=== PATIENT | male | born 1975 | race Caucasian/White ===

== ENCOUNTER 2017-01-19 16:06 | Emergency (ER) | payer SELFPAY ==
[2017-01-19 16:18] VITALS: BP 131/90
--- NOTE | 2017-01-19 16:19 | ER Document Report ---
ED Medical Screen (RME) - General Stated Complaint: RIGHT KNEE PAIN Time seen by provider: 16:15 Mode of Arrival: Ambulatory Notes: Patient complains of right knee pain that started last night. Patient states that the pain is constant, but denies any injury. No previous history of problems with the knees. States he feels the pain under the kneecap. He states he took 600 mg of ibuprofen this morning with no relief of symptoms. Denies swelling. I have greeted and performed a rapid initial assessment of this patient. A comprehensive ED assessment and evaluation of the patient, analysis of test results and completion of the medical decision making process will be conducted by additional ED providers. - Related Data Allergies/Adverse Reactions: No Known Allergies Allergy (Verified 01/19/17 16:15) Physical Exam - Extremities Notes: Patient mildly tender to right lateral knee. Patient has full range of motion.
--- NOTE | 2017-01-19 17:05 | ER Document Report ---
ED Extremity Problem, Lower - General Chief Complaint: Knee Pain Stated Complaint: RIGHT KNEE PAIN Mode of Arrival: Ambulatory Notes: Patient is complaining of pain of his right jair-lateral knee that was present when he awakened this morning. There is no pain in the popliteal fossa , or in the right lower leg anywhere. Negative Homans. Has never had this happen before. Patient says that it is so painful that he is unable to keep his foot on the pedals to drive a car. He and his travel from here to [place] yesterday from about 2 PM until 6:30 PM and they went on a dinner [place] and then spent the night in [place]. They awakened and left [place] about 10:30 this morning to return here and that's when the patient noticed his pain. He specifically does not recall any injury or unusual activity or positioning of the knee that would result in this pain that he is experiencing. Patient took 600 mg of Motrin this morning but that did not cause any relief of symptoms. He is able to walk on the knee, but it is painful to do so and he has a very slight limp. Does not have any history of any arthritic conditions. Has not had a fever. Never had a problem with blood clots. TRAVEL OUTSIDE OF THE [place] IN LAST 30 DAYS: No - Related Data Allergies/Adverse Reactions: No Known Allergies Allergy (Verified 01/19/17 16:15) Past Medical History - Social History Smoking Status: Never Smoker Chew tobacco use (# tins/day): No Frequency of alcohol use: Occasional Drug Abuse: None Family History: Reviewed & Not Pertinent Patient has suicidal ideation: No Patient has homicidal ideation: No Musculoskeltal Medical History: Denies Hx Arthritis, Denies Hx Gout, Denies Hx Myositis Psychiatric Medical History: Reports: Hx Anxiety, Hx Depression - On a medication but he can't recall the name Past Surgical History: Reports: Hx Cholecystectomy Review of Systems - Review of Systems Notes: REVIEW OF SYSTEMS: CONSTITUTIONAL : Denies fever. No unusual activity or positioning or anything else having to do with his right knee. EENT: Denies eye, ear, nose or mouth or throat pain or other symptoms. CARDIOVASCULAR: Denies chest pain. RESPIRATORY: Denies cough, chest congestion, or shortness of breath. GASTROINTESTINAL: Denies abdominal pain or nausea, vomiting, or diarrhea. GENITOURINARY: Denies difficulty or painful urinating, urinary frequency, blood in urine. MUSCULOSKELETAL: Denies back or neck pain. See history of present illness. SKIN: Denies rash or skin lesions. NEUROLOGICAL: Denies LOC or altered mental status. Denies headache. Denies sensory loss or motor deficits. ALL OTHER SYSTEMS REVIEWED AND NEGATIVE. Physical Exam - Vital signs Vitals: Temp Pulse Resp BP Pulse Ox 97.9 F 78 16 131/90 H 97 01/19/17 16:16 01/19/17 16:16 01/19/17 16:16 01/19/17 16:16 01/19/17 16:16 Interpretation: Normal. No: Febrile - Notes Notes: PHYSICAL EXAMINATION: GENERAL: Well-appearing, in no acute distress. HEAD: Atraumatic, normocephalic. BACK: No tenderness throughout entire back. EXTREMITIES: Normal range of motion without pain. Right knee does not appear to be swollen and there is no evidence of effusion. All 4 of the major ligaments are tight and secure. There is no erythema, increased heat, lymphangitis, etc. Patient has some mild tenderness to my palpation of the outer anterior aspect of the right knee in the interspace between the lateral right patella and the tissues posterior to it. PSYCH: Normal mood, normal affect. SKIN: Warm, dry, no rashes. Course - Re-evaluation Re-evalutation: 01/19/17 17:25 I'm not sure what's causing the patient's pain. It does not appear to be a blood clot. It does not appear to be an infectious process. It seems to be an arthritic condition that may have been activated by mechanical measures such as unusual positioning of his knee and the travels to [place] yesterday or in his activities last night, although the patient cannot recall any unusual positioning or activities. Advised the patient to take Motrin 400-600 mg a couple times a day for the next few days and apply ice packs to the right knee. If his symptoms subside, I don' t the kidneys further follow-up. On the other hand, if he is not better in 2 days, I recommend he follow-up with his private doctor for further evaluation. Patient declined prescription for Percocet or Vicodin for stronger pain medication. - Vital Signs Vital signs: Temp Pulse Resp BP Pulse Ox 97.9 F 78 16 131/90 H 97 01/19/17 16:16 01/19/17 16:16 01/19/17 16:16 01/19/17 16:16 01/19/17 16:16 - Diagnostic Test Radiology results interpreted by me: 01/19/17 17:25 X-rays of the right knee are normal. Discharge - Discharge Clinical Impression: Arthritis, Bursitis, Tendinitis Right knee pain Qualifiers: Chronicity: acute Qualified Code(s): M25.561 - Pain in right knee Condition: Stable Disposition: HOME, SELF-CARE Additional Instructions: Arthritis Your symptoms are due to arthritis. Arthritis is an inflammation of the joints. There are many types -- osteoarthritis (due to "wear and tear"), auto- immmune arthritis (such as rheumatoid, lupus, Bg's, and others), and crystal -induced arthritis (such as gout and pseudogout). The physician's examination, combined with laboratory tests, will determine the cause of your arthritis. All types of arthritis are treated with antiinflammatory medications. Other medication may be required for special types of arthritis, or if your problem does not respond to the antiinflammatory medicine. Local warmth may be helpful. Move the involved joints through the full range of motion daily. Mild exercise is usually still possible for most persons with arthritis (ask your physician). Swimming provides good exercise without damaging the joints. Contact the physician if you are worsening in any way. Tendonitis The pain you are having is due to tendonitis -- an inflammation around a muscle tendon. It's usually caused by overuse or repeated minor injuries ( strains) of the tendon. Tendonitis can take two to four weeks to heal. In fact, you may actually worsen for a few days despite treatment. Tendonitis is usually treated with rest, local heat, and antiinflammatory medication. Sometimes cold packs are recommended if the tendonitis has just started. If the pain is severe or prolonged, cortisone injections may be required. Call the doctor if pain or swelling become severe, if new discoloration or redness appears, or if numbness is noted. Bursitis You have been diagnosed as having bursitis. Bursitis is an inflammation of a fluid pouch (bursa) found near joints. This is usually due to repeated minor irritation, or pressure directly on the bursa. On occasion, the bursitis can be due to infection (your doctor has checked for this). Sometimes the doctor decides to remove the fluid from the bursa with a needle. This may be to examine the fluid for infection or to ease the pressure caused by the fluid. The usual treatment is rest, local warmth, (or cold if the bursitis is caused by an acute injury), and antiinflammatory medication. Occasionally, an injection of cortisone is necessary. You should call the doctor for re-examination if the pain increases significantly, or if the area becomes severely swollen and red, or fever develops. Your x-rays of your knee are all normal. Your symptoms seems to be secondary to an inflammatory process such as arthritis, tendinitis, bursitis, etc. It sounds most likely as if it may be a mechanical inflammatory process in some way related to your travels or activities over the past 24 hours. Ibuprofen Ibuprofen is an excellent, safe drug for pain control. In addition, it has potent antiinflammatory effects which are beneficial, especially in the treatment of injuries, arthritis, or tendonitis. It's best to take ibuprofen with food. Persons with ulcer disease or allergy to aspirin should notify their physician of this before taking ibuprofen. Take the medication exactly as prescribed. Don't take additional doses unless instructed to do so by your doctor. If you develop wheezing, shortness of breath, hives, faintness, stomach pain, vomiting, or dark black stools, return for re-evaluation at once. Ice Packs Apply ice packs frequently against the painful area. Many different schedules are recommended, such as "20 minutes on, 20 minutes off" or "one hour ice, two hours rest." If you need to work, you may need to go longer between ice treatments. You should plan to have the area ice packed AT LEAST one fourth of the time. The ice should be applied over the wrap, tape, or splint, or over a layer of cloth -- not directly against the skin. Some ice bags have a built-in cloth and can be put directly on the skin. Take it easy tomorrow, rest the area. Apply cold compresses or ice packs off and on over the next 24-48 hours. If you are still having the pain and it doesn 't seem to be getting better Friday, I would see your doctor about another evaluation. FOLLOW-UP CARE: If you have been referred to a physician for follow-up care, call the physician s office for an appointment as you were instructed or within the next two days. If you experience worsening or a significant change in your symptoms, notify the physician immediately or return to the Emergency Department at any time for re-evaluation.
== END 2017-01-19 17:15 | disposition home or self-care (01) ==
LOC: ER 16:06
DX: M25.561 Pain in right knee (principal); Z79.899 Other long term (current) drug therapy
CPT/HCPCS: 99283

== ENCOUNTER 2018-04-04 20:29 | Emergency (ER) | payer BC ==
[2018-04-04] MEDS ORDERED: ALBUTEROL SULFATE HFA (90 MCG/PUFF) 8 GM MDI (1 MDI/ER DISP) IH ONE (21:44)
--- NOTE | 2018-04-04 22:15 | RADIOLOGY REPORT (SQ) ---
EXAM DESCRIPTION: CHEST 2 VIEWS COMPLETED DATE/TIME: 04/04/2018 10:00 pm REASON FOR STUDY: cough, wheezing COMPARISON: None. EXAM PARAMETERS: NUMBER OF VIEWS: two views TECHNIQUE: Digital Frontal and Lateral radiographic views of the chest acquired. RADIATION DOSE: NA LIMITATIONS: none FINDINGS: LUNGS AND PLEURA: No opacities, masses or pneumothorax. No pleural effusion. MEDIASTINUM AND HILAR STRUCTURES: No masses or contour abnormalities. HEART AND VASCULAR STRUCTURES: Heart normal size. No evidence for failure. BONES: No acute findings. HARDWARE: None in the chest. OTHER: No other significant finding. IMPRESSION: NO ACUTE RADIOGRAPHIC FINDING IN THE CHEST. TECHNICAL DOCUMENTATION: JOB ID: [id number] [employer]- All Rights Reserved Reading location - IP/workstation name: [email or web address]
[2018-04-04] MEDS ORDERED: AZITHROMYCIN 250 MG TABLET PO ONE (23:28)
[2018-04-04] MEDS ORDERED: GUAIFENESIN 600 MG TABLET.SA PO ONE (23:28)
--- NOTE | 2018-04-04 23:33 | ER Document Report ---
ED General - General Chief Complaint: Cough Stated Complaint: COUGH Time Seen by Provider: 04/04/18 21:37 Mode of Arrival: Ambulatory Information source: Patient TRAVEL OUTSIDE OF THE [place] IN LAST 30 DAYS: No - HPI Notes: Patient is a 42-year-old male history of reactive airways disease who is been on inhalers for the last year presents with report of cough congestion last 2-3 weeks and is out of his inhaler. The patient is a non-smoker with no history of premature or eczema or childhood asthma. The patient denies any chest pain, but does report the cough keeps him up at night and reports the cough is productive of some slightly colored phlegm. Patient denies any chest pain. The patient reports no vomiting or diarrhea. No constipation. - Related Data Allergies/Adverse Reactions: No Known Allergies Allergy (Verified 04/04/18 20:30) Past Medical History - General Information source: Patient - Social History Smoking Status: Never Smoker Chew tobacco use (# tins/day): No Frequency of alcohol use: None Drug Abuse: None Lives with: Family Family History: COPD Patient has suicidal ideation: No Patient has homicidal ideation: No Renal/ Medical History: Denies: Hx Peritoneal Dialysis Musculoskeltal Medical History: Denies Hx Arthritis, Denies Hx Gout Psychiatric Medical History: Reports: Hx Anxiety, Hx Depression - On a medication but he can't recall the name Past Surgical History: Reports: Hx Cholecystectomy Review of Systems - Review of Systems Notes: REVIEW OF SYSTEMS: CONSTITUTIONAL : Denies fever, chills, or sweats. EENT: Denies eye, ear, throat, or mouth pain or symptoms. Denies throat, tongue, or mouth swelling or difficulty swallowing. CARDIOVASCULAR: Denies chest pain. Denies palpitations or racing or irregular heart beat. Denies ankle edema. RESPIRATORY: Mild dyspnea. GASTROINTESTINAL: Denies abdominal pain or distention. Denies nausea, vomiting , or diarrhea. Denies blood in vomitus, stools, or per rectum. Denies black, tarry stools. Denies constipation. GENITOURINARY: Denies difficulty urinating, painful urination, burning, frequency, blood in urine, or discharge. MUSCULOSKELETAL: Denies back or neck pain or stiffness. Denies joint pain or swelling. SKIN: Denies rash, lesions or sores. HEMATOLOGIC : Denies easy bruising or bleeding. LYMPHATIC: Denies swollen, enlarged glands. NEUROLOGICAL: Denies confusion or altered mental status. Denies passing out or loss of consciousness. Denies dizziness or lightheadedness. Denies headache. Denies weakness or paralysis or loss of use of either side. Denies problems with gait or speech. Denies sensory loss, numbness, or tingling. Denies seizures. PSYCHIATRIC: Denies anxiety or stress. Denies depression, suicidal ideation, or homicidal ideation. ALL OTHER SYSTEMS REVIEWED AND NEGATIVE. Dictation was performed using [employer] voice recognition software Physical Exam - Vital signs Vitals: Temp Pulse Resp BP Pulse Ox 98.6 F 77 18 141/87 H 95 04/04/18 20:36 04/04/18 20:36 04/04/18 20:36 04/04/18 20:36 04/04/18 20:36 - Notes Notes: PHYSICAL EXAMINATION: GENERAL: Well-appearing, well-nourished and in no acute distress. HEAD: Atraumatic, normocephalic. EYES: Pupils equal round and reactive to light, extraocular movements intact, sclera anicteric, conjunctiva are normal. ENT: oropharynx clear without exudates. Moist mucous membranes. Clear coryza noted. NECK: Normal range of motion, supple without lymphadenopathy LUNGS: Scant anterior wheezes noted bilaterally. No rales or rhonchi. HEART: Regular rate and rhythm without murmurs. ABDOMEN: Soft, nontender, nondistended abdomen. No guarding, no rebound. No masses appreciated. Musculoskeletal: Normal range of motion, no pitting or edema. No cyanosis. Negative Homans. No palpable cord. NEUROLOGICAL: Cranial nerves grossly intact. Normal speech, normal gait. Normal sensory, motor exams PSYCH: Normal mood, normal affect. SKIN: Warm, Dry, normal turgor, no rashes or lesions noted. Course - Re-evaluation Re-evalutation: 04/04/18 23:32 Patient was given albuterol metered-dose inhaler. Repeat lung auscultation showed no wheezing. Chest x-ray was negative for pneumonia. There is no evidence for congestive heart failure or pneumothorax or other acute process. - Vital Signs Vital signs: Temp Pulse Resp BP Pulse Ox 98.6 F 77 18 141/87 H 95 04/04/18 20:36 04/04/18 20:36 04/04/18 20:36 04/04/18 20:36 04/04/18 20:36 Discharge - Discharge Clinical Impression: Bronchitis Reactive airway disease Qualifiers: Asthma severity: mild Asthma persistence: intermittent Asthma complication type : uncomplicated Qualified Code(s): J45.20 - Mild intermittent asthma, uncomplicated Disposition: HOME, SELF-CARE Instructions: Reactive Airway Disease ([facility]), Bronchitis ([facility]), Family Physicians / Practices Prescriptions: Albuterol Sulfate [Proair HFA Inhalation Aerosol 8.5 gm MDI] 2 puff IH Q4H PRN # 1 mdi PRN Reason: Azithromycin [Zithromax 250 mg Tablet] 250 mg PO DAILY #4 tablet Loratadine/Pseudoephedrine Sul [Claritin-D 24 Hour Tablet] 1 tab PO DAILY #30 tab.sr.24h
[2018-04-05 01:35] VITALS: BP 125/79
== END 2018-04-04 23:55 | disposition home or self-care (01) ==
LOC: ER 20:29
DX: J45.20 Mild intermittent asthma, uncomplicated (principal); J40 Bronchitis, not specified as acute or chronic; R05 Cough
CPT/HCPCS: 99283; 71046; J3490